=== PATIENT | female | born 1990 | race Caucasian/White ===

== ENCOUNTER 2017-07-13 13:11 | Day surgery (SDC) | payer MEDICAID ==
[~2017-07-13] VITALS: Ht 152.4 cm; Wt 71.4 kg
[2017-07-13] VITALS (8 sets, daily range): BP systolic 93–118; BP diastolic 49–82; PULSE 64–80; TEMP 97.7–98.3
[~2017-07-13 13:11] MED LIST: MOTRIN 800800 MG/TAB PO; PERCOCET 325 MG1 TA2 PO; PRENATAL MULTIV1 KIT PO; TUMS ULTRA1000 MG PO
== END 2017-07-13 21:30 | disposition home or self-care (01) ==
LOC: SDCO 13:11 → SURG 17:10 → SDCO 21:30
DX: K80.10 Calculus of gallbladder with chronic cholecystitis without obstruction (principal); K21.9 Gastro-esophageal reflux disease without esophagitis; L30.9 Dermatitis, unspecified
CPT/HCPCS: OP; J1170; J1885; J1956; J2270; J2405; J2550; J2704; J3010; J7120